=== PATIENT | female | born 1935 | race Caucasian/White ===

== ENCOUNTER 2016-05-05 10:18 | Outpatient (CLI) | payer MEDICARE, BC ==
[2016-05-05 10:54] LABS: Anion Gap 15 mmol/L (10-20); BUN (Urea Nitrogen) 21 mg/dL (9.8-20.1); Calc. Creatinine Clearance 0 mL/min (70-130); Calcium 9.5 mg/dL (7.8-10.44); Carbon Dioxide 19 mmol/L (23-31); Chloride 111 mmol/L (98-107); Estimated GFR-MDRD 26
== END 2016-05-05 10:19 | disposition home or self-care (01) ==
LOC: BURLAB 10:18
PROVIDERS: ATTEND Internal Medicine Nephrology
DX: N18.3 Chronic kidney disease, stage 3 (moderate) (principal); R80.9 Proteinuria, unspecified
CPT/HCPCS: 36415; 80048; 82570; 84156

== ENCOUNTER 2016-05-19 09:40 | Outpatient (CLI) | payer MEDICARE, BC ==
[2016-05-19 11:49] LABS: #Basophils 0.1 thou/uL (0.0-0.2); #Eosinphils 0.2 thou/uL (0.0-0.7); #Lymphocytes 1.2 thou/uL (1.20-3.40); #Monocytes 0.4 thou/uL (0.11-0.59); #Neutrophils 4.4 thou/uL (1.40-6.50); %Basophils 1.5 % (0.0-1.0); %Eosinophils 3.3 % (0.0-10.0); %Monocytes 6.9 % (0.0-10.0); Hematocrit 38.8 % (36.0-47.0); Mean Platelet Volume 5.6 fL (7.4-10.4); Red Blood Cell (RBC) Count 3.85 mill/uL (4.20-5.40); White Blood Cell (WBC) Count 6.2 thou/uL (4.8-10.8)
[2016-05-19 12:19] LABS: Calc. Creatinine Clearance 0 mL/min (70-130); Carbon Dioxide 19 mmol/L (23-31); Chloride 125 mmol/L (98-107); Estimated GFR-MDRD 25; LDL Cholesterol, Calculated 77 mg/dL; Protein, Total 7.1 g/dL (5.8-8.1)
[2016-05-19 12:20] LABS: ALT (SGPT) 14 U/L (0-55); AST (SGOT) 30 U/L (5-34); Alkaline Phosphatase 50 U/L (40-150); Anion Gap 22 mmol/L (10-20); BUN (Urea Nitrogen) 27 mg/dL (9.8-20.1); Bilirubin, Total 0.6 mg/dL (0.2-1.2); Calcium 9.3 mg/dL (7.8-10.44); Globulin 3.2 g/dL (2.4-3.5)
== END 2016-05-19 09:41 | disposition home or self-care (01) ==
LOC: HPCALD 09:40
PROVIDERS: ATTEND Family Medicine
DX: E78.5 Hyperlipidemia, unspecified (principal); E03.9 Hypothyroidism, unspecified
CPT/HCPCS: 36415; 80053; 80061; 84443; 85025

== ENCOUNTER 2016-05-19 13:51 | Emergency (ER) | payer MEDICARE, BC ==
[2016-05-19 15:44] LABS: Anion Gap 15 mmol/L (10-20); BUN (Urea Nitrogen) 26 mg/dL (9.8-20.1); Calc. Creatinine Clearance 0 mL/min (70-130); Calcium 9.5 mg/dL (7.8-10.44); Carbon Dioxide 20 mmol/L (23-31); Chloride 112 mmol/L (98-107); Estimated GFR-MDRD 26
--- NOTE | 2016-05-19 17:05 | ERRECORD ---
[facility] EMERGENCY RECORD PAST MEDICAL HISTORY (14:04 KMOR) MEDICAL HISTORY: Flu vaccine up to date, Tetanus not up to date, Pneumococcal vaccine up to date, Past medical history includes endocrine disease, hypothyroidism, Past medical history includes history of hyperlipidemia. FEMALE SURGICAL HISTORY: Patient's surgical history is not relevant to the management of the case. PSYCHIATRIC HISTORY: No previous psychiatric history. SOCIAL HISTORY: Patient drinks socially, Patient denies drug use, Patient has no smoking history. KNOWN ALLERGIES No Known Allergies (Unconfirmed) No Known Drug Allergies CURRENT MEDICATIONS simvastatin: TABLET : Strength - 20 mg : ORAL Patient Dose: 20 mg Oral once a day (at bedtime). (14:04 KMOR) pilocarpine HCl: TABLET : Strength - 7.5 mg : ORAL Patient Dose: 7.5 mg Oral 3 times a day. (14:05 KMOR) levothyroxine: TABLET : Strength - 75 mcg : ORAL Patient Dose: 75 mcg Oral once a day. (14:05 KMOR) hydroxychloroquine: TABLET : Strength - 200 mg : ORAL Patient Dose: 200 mg Oral 2 times a day. (14:06 KMOR) VITAL SIGNS VITAL SIGNS: Pulse: 82, Resp: 18, Temp: 98.1 (Oral), Pain: 8, O2 sat: 99 on Room Air, Time: 05/19/2016 13:57. (13:57 KMOR) BP: 177/70, Time: 05/19/2016 14:00. (14:00 KMOR) BP: 179/61, Pulse: 72, Resp: 18, O2 sat: 100 on Room Air, Time: 05/19/2016 15:00. (15:00 AHOO) BP: 171/63, Pulse: 75, Resp: 17, O2 sat: 100 on Room Air, Time: 05/19/2016 15:37. (15:37 AHOO) BP: 160/66, Pulse: 76, Resp: 16, Temp: 98.1 (Oral), Pain: 5, O2 sat: 100 on Room Air, Time: 05/19/2016 15:54. (15:54 AHOO) MEDICATION ADMINISTRATION SUMMARY Drug Name: sodium chloride 0.45 % intravenous, Dose Ordered: 500 mL, Route: IV Fluid Infusion, Status: Given, Time: 14:36 05/19/2016, Detailed record available in Medication Service section. PROBLEM LIST No recorded problems &a-1R&a+25V*p+0X*[id number]*c202B*c15G*c2P*p-0X&a-25V&a+1R Name: Greta Miller : 1935 F80 MedRec: [id number] AcctNum: [id number] Prepared: MonMay 19, 2016 16:10 by Interface Page 1 of 2 pMD [facility] EMERGENCY RECORD DIAGNOSIS (15:51 WMEI) FINAL: PRIMARY: Hypernatremia. PRESCRIPTION No recorded prescriptions DISPOSITION PATIENT: Disposition Type: Discharge, Disposition: *Discharge Home. (15:51 WMEI) Patient left the department. (16:07 AHOO) Magana: AHOO=AISHA Petersen, July KMOR=POLA Hickman, Alexandra WMEI=DO Solorzano William &a-1R&a+25V*p+0X*e0178B*c202B*c15G*c2P*p-0X&a-25V&a+1R Name: Greta Miller : 1935 F80 MedRec: [id number] AcctNum: [id number] Prepared: MonMay 19, 2016 16:10 by Interface Page 2 of 2 pMD MTDD
--- NOTE | 2016-05-19 17:07 | PICIS ---
[facility] EMERGENCY RECORD TRIAGE (13:58 KMOR) TRIAGE NOTES: Had routine lab work from pcp this am, called and told to come to ED for abnormal labs. (13:58 KMOR) PATIENT: NAME: Greta Miller, AGE: 80, GENDER: female, : Sat 1935, TIME OF GREET: Yanelis May 19, 2016 13:51, PREFERRED LANGUAGE: Peruvian, ETHNICITY: Not or , ECODE BILLING MAP: [facility], SSN: [id number], Zip Code: [address], KG WEIGHT: 71.67, PHONE: , , , PERSON ID: [id number], PAYMENT: [employer], PCP: MIGUEL. (13:58 KMOR) COMPLAINT: Abnormal labs. (13:58 KMOR) ADMISSION: URGENCY: 4 Non Urgent, ADMISSION SOURCE: Home, TRANSPORT: CAR, BED: ER -04. (13:58 KMOR) ASSESSMENT: Assessment: A&OX4. RR EVEN AND UNLABROED. (14:04 KMOR) PAIN: Patient complains of pain described as, aching, on a scale 0-10 patient rates pain as 8, Location BACK. (14:04 KMOR) IMMUNIZATIONS: Flu vaccine up to date, Tetanus not up to date, Pneumococcal vaccine up to date. (14:04 KMOR) SIRS SCORING: Heart Rate 55-109 (0), Temp range 96.8-101.1 (0), respiratory rate 12-24 (0), Mental Status altered: no (0), Infection or Suspected Infection: No. (14:04 KMOR) TRIAGE SCREENING: Patient denies suicidal ideation, Patient denies presence of domestic violence. (14:04 KMOR) LMP: LMP: Menopause. (14:04 KMOR) PROVIDERS: TRIAGE NURSE: Alexandra Hickman RN. (13:58 KMOR) VITAL SIGNS: Pulse 82, Resp 18, Temp 98.1, (Oral), Pain 8, O2 Sat 99, on Room Air, Time 05/19/2016 13:57. (13:57 KMOR) KNOWN ALLERGIES No Known Allergies (Unconfirmed) No Known Drug Allergies CURRENT MEDICATIONS simvastatin: TABLET : Strength - 20 mg : ORAL Patient Dose: 20 mg Oral once a day (at bedtime). (14:04 KMOR) pilocarpine HCl: TABLET : Strength - 7.5 mg : ORAL Patient Dose: 7.5 mg Oral 3 times a day. (14:05 KMOR) levothyroxine: TABLET : Strength - 75 mcg : ORAL Patient Dose: 75 mcg Oral once a day. (14:05 KMOR) hydroxychloroquine: TABLET : Strength - 200 mg : ORAL Patient Dose: 200 mg Oral 2 times a day. (14:06 KMOR) VITAL SIGNS &a-1R&a+25V*p+0X*m9674F*c202B*c15G*c2P*p-0X&a-25V&a+1R Name: Greta Miller : 1935 F80 MedRec: [id number] AcctNum: [id number] Prepared: [facility] May 19, 2016 16:16 by Interface Page 1 of 5 pMD [facility] EMERGENCY RECORD VITAL SIGNS: Pulse: 82, Resp: 18, Temp: 98.1 (Oral), Pain: 8, O2 sat: 99 on Room Air, Time: 05/19/2016 13:57. (13:57 KMOR) BP: 177/70, Time: 05/19/2016 14:00. (14:00 KMOR) BP: 179/61, Pulse: 72, Resp: 18, O2 sat: 100 on Room Air, Time: 05/19/2016 15:00. (15:00 AHOO) BP: 171/63, Pulse: 75, Resp: 17, O2 sat: 100 on Room Air, Time: 05/19/2016 15:37. (15:37 AHOO) BP: 160/66, Pulse: 76, Resp: 16, Temp: 98.1 (Oral), Pain: 5, O2 sat: 100 on Room Air, Time: 05/19/2016 15:54. (15:54 AHOO) NURSING ASSESSMENT: FOCUSED (14:37 KMOR) CONSTITUTIONAL: Patient arrives ambulatory, Gait steady, History obtained from patient, Patient appears comfortable, Patient cooperative, Patient alert, Oriented to person, place and time, Skin warm, Skin dry, Skin normal in color, Mucous membranes pink, Mucous membranes moist, Patient is well-groomed, Patient complains of Abnomal labs, Patient reports abnormal labs per pcp, Reports today she has routine test and was called to come to ED for abnormal. No nausea, no vomiting, no diarrhea. NA 161. PAIN: aching pain, low back, on a scale 0-10 patient rates pain as 8. EYES: Focused eye assessment finding include pupils equally round and reactive to light, Left pupil 3 mm in size, Right pupil 3 mm in size, no redness, no tearing, no foreign body sensation. NEURO: Focused neuro assessment findings include patient alert, cooperative, No facial droop noted, Speech coherent, no weakness, no numbness, No loss of consciousness. GCS: Eye opening: (4) - Spontaneous, Verbal: (5) - Oriented/conversive, Motor: (6) - Obeys commands/Spontaneous, GCS Total: 15. RESPIRATORY: Focused respiratory assessment findings include breath sounds clear. ABDOMEN: Focused abdominal assessment findings include abdomen soft, no complaint of nausea, no vomiting, Bowel sounds present. GENITOURINARY FEMALE: Focused genitourinary assessment not applicable. MUSCULOSKELETAL: Focused musculoskeletal assessment findings include normal range of motion. LACERATION: Focused laceration assessment not applicable. NOTES: Patient tolerated procedure well. NURSING PROCEDURE: DISCHARGE NOTE (16:00 OO) DISCHARGE: Patient discharged to home, ambulating without assistance, family driving, accompanied by //partner, Summary of Care printed/ provided, Transition record given to patient, Discharge instructions given to patient, Discharge instructions given to PT SPOUSE, Above person(s) verbalized understanding of discharge instructions and follow-up care, Patient treated and evaluated by physician. &a-1R&a+25V*p+0X*d8200T*c202B*c15G*c2P*p-0X&a-25V&a+1R Name: Greta Miller : 1935 F80 MedRec: [id number] AcctNum: [id number] Prepared: Yanelis May 19, 2016 16:16 by Interface Page 2 of 5 D [facility] EMERGENCY RECORD NURSING PROCEDURE: IV PATIENT IDENITIFIER: Patient actively involved in identification process, Patient's identity verified by patient stating name, Patient's identity verified by patient stating date. (14:30 KMOR) Patient actively involved in identification process, Patient's identity verified by patient stating name, Patient's identity verified by patient stating date, Patient's identity verified by hospital ID sania, Patient's identity verified by family member. (15:52 AHOO) IV SITE 1: IV therapy indicated for hydration, IV therapy indicated for medication administration, IV established, to the right antecubital, using a 20 gauge catheter, in one attempt, Saline lock established, Flushed with normal saline (mls): 10cc. (14:30 KMOR) FOLLOW-UP SITE 1: After procedure, 2x3 ensure dressing applied, After procedure, no drainage at IV site, After procedure, no swelling at IV site, After procedure, no redness at IV site. (14:30 KMOR) After procedure, 2x2 dressing applied, After procedure, no drainage at IV site, After procedure, no swelling at IV site, After procedure, no redness at IV site, IV discontinued, due to patient being discharged, catheter intact. (15:52 AHOO) NOTES: Patient tolerated procedure well. (14:30 KMOR) ORDER DETAILS Order Name: Basic Metabolic Panel, Status: Active, Time: 15:20 05/19/2016, User: [facility], - Ordered for: DO Solorzano William, - Entered by: DO Solorzano William - [facility] May 19, 2016 15:20, - Quantity: 1, Order Name: SALINE LOCK, Status: Done, Time: 14:30 05/19/2016, User: JOSE DE JESUS, - Ordered for: DO Solorzano William, - Entered by: DO Solorzano William - [facility] May 19, 2016 14:22, - Quantity: 1. MEDICATION ADMINISTRATION SUMMARY Drug Name: sodium chloride 0.45 % intravenous, Dose Ordered: 500 mL, Route: IV Fluid Infusion, Status: Given, Time: 14:36 05/19/2016, Detailed record available in Medication Service section. MEDICATION SERVICE sodium chloride 0.45 % intravenous: Order: sodium chloride 0.45 % intravenous (sodium chloride 0.45 %) - Dose: 500 mL : IV Fluid Infusion Schedule: Now Ordered by: Jose Solorzano DO Entered by: Jose Solorzano DO [facility] May 19, 2016 14:24 , Acknowledged by: Colleen Petersen LVN [facility] May 19, 2016 14:29 &a-1R&a+25V*p+0X*q9942O*c202B*c15G*c2P*p-0X&a-25V&a+1R Name: Greta Miller : 1935 F80 MedRec: [id number] AcctNum: [id number] Prepared: Yanelis May 19, 2016 16:16 by Interface Page 3 of 5 pMD [facility] EMERGENCY RECORD Documented as given by: Alexandra Hickman RN [facility] May 19, 2016 14:36 Patient, Medication, Dose, Route and Time verified prior to administration. Amount given: 500ml, IV SITE #1 IV fluids established for hydration, IV SITE #1 into right antecubital, IV SITE #1 1st bag hung, amount 1 Liter hung, IV SITE #1 bolus of 500 ml established, via primary tubing, IV SITE #1 on IV pump, Connections checked prior to administration, Line traced prior to administration, Catheter placement confirmed via flush prior to administration, IV site without signs or symptoms of infiltration during medication administration, No swelling during administration, No drainage during administration, IV flushed after administration, Correct patient, time, route, dose and medication confirmed prior to administration, Patient advised of actions and side-effects prior to administration, Allergies confirmed and medications reviewed prior to administration, Patient in position of comfort, Side rails up, Cart in lowest position, Family at bedside. : Follow Up : Response assessment performed, No signs or symptoms of allergic reaction noted, _IV SITE #1:_, IV fluid infusion discontinued, on Yanelis May 19, 2016 15:17, 45 minutes, ., Total amount infused: 500ML, IV Line flushed after administration. (15:17 AHOO) PAST MEDICAL HISTORY (14:04 KMOR) MEDICAL HISTORY: Flu vaccine up to date, Tetanus not up to date, Pneumococcal vaccine up to date, Past medical history includes endocrine disease, hypothyroidism, Past medical history includes history of hyperlipidemia. FEMALE SURGICAL HISTORY: Patient's surgical history is not relevant to the management of the case. PSYCHIATRIC HISTORY: No previous psychiatric history. SOCIAL HISTORY: Patient drinks socially, Patient denies drug use, Patient has no smoking history. EVENTS TRANSFER: Triage to Emergency Emergency Room -04. (MonMay 19, 2016 13:58 KMOR) Removed from Emergency Emergency Room -04. (16:07 AHOO) PROBLEM LIST No recorded problems DIAGNOSIS (15:51 WMEI) FINAL: PRIMARY: Hypernatremia. DISPOSITION PATIENT: Disposition Type: Discharge, Disposition: *Discharge Home. (15:51 WMEI) Patient left the department. (16:07 AHOO) &a-1R&a+25V*p+0X*g9325Y*c202B*c15G*c2P*p-0X&a-25V&a+1R Name: Greta iMller : 1935 F80 MedRec: [id number] AcctNum: [id number] Prepared: MonMay 19, 2016 16:16 by Interface Page 4 of 5 pMD [facility] EMERGENCY RECORD INSTRUCTION (15:52 WMEI) DISCHARGE: SODIUM (BLOOD). SPECIAL: Follow-up with your PCP. PRESCRIPTION No recorded prescriptions IMAGING *DISCHARGE INSTRUCTIONS RECEIPT: Image captured from scanner. (16:03 AHOO) *SUPPLY CHARGE SHEET: Image captured from scanner. (16:04 AHOO) Magana: AHOO=AISHA Petersen, July KMOR=POLA Hickman, Alexandra WMEI=DO Solorzano William &a-1R&a+25V*p+0X*x1229T*c202B*c15G*c2P*p-0X&a-25V&a+1R Name: Paul Greta M : 1935 F80 MedRec: [id number] AcctNum: [id number] Prepared: MonMay 19, 2016 16:16 by Interface Page 5 of 5 pMD MTDD
== END 2016-05-19 16:00 | disposition home or self-care (01) ==
LOC: BURERS 13:51
DX: E87.0 Hyperosmolality and hypernatremia (principal); E03.9 Hypothyroidism, unspecified; E78.5 Hyperlipidemia, unspecified; Z79.899 Other long term (current) drug therapy
CPT/HCPCS: 36415; 80053; 80061; 84443; 85025; 96360

== ENCOUNTER 2016-05-23 10:38 | Outpatient (CLI) | payer MEDICARE, BC ==
[2016-05-23 13:08] LABS: ALT (SGPT) 15 U/L (0-55); AST (SGOT) 24 U/L (5-34); Alkaline Phosphatase 49 U/L (40-150); Anion Gap 15 mmol/L (10-20); BUN (Urea Nitrogen) 27 mg/dL (9.8-20.1); Bilirubin, Total 0.6 mg/dL (0.2-1.2); Calc. Creatinine Clearance 0 mL/min (70-130); Calcium 9.3 mg/dL (7.8-10.44); Carbon Dioxide 20 mmol/L (23-31); Chloride 113 mmol/L (98-107); Estimated GFR-MDRD 26; Globulin 3.1 g/dL (2.4-3.5); Protein, Total 7.3 g/dL (5.8-8.1)
== END 2016-05-23 10:39 | disposition home or self-care (01) ==
LOC: HPCALD 10:38
PROVIDERS: ATTEND Family Medicine
DX: E87.0 Hyperosmolality and hypernatremia (principal)
CPT/HCPCS: 36415; 80053; 83930; 83935

== ENCOUNTER 2016-05-24 15:54 | Outpatient (CLI) | payer MEDICARE, BC ==
[2016-05-24 16:30] LABS: Bilirubin Negative (Negative); Blood, Urine Trace (Negative); Glucose, Urine (Dipstick) Negative (Negative); Ketone, Urine Negative (Negative); Nitrite Negative (Negative); Protein, Urine (Dipstick) Negative (Neg-Trace); Urobilinogen 0.2 mg/dL (0.2-1.0)
[2016-05-24 20:32] LABS: Bacteria/HPF 2+ HPF (None Seen); RBC/HPF None Seen HPF (0-3); Squamous Epithelial 0-3 HPF (0-3); WBC/HPF 21-50 HPF (0-3)
== END 2016-05-24 15:55 | disposition home or self-care (01) ==
LOC: HPCALD 15:54
PROVIDERS: ATTEND Family Medicine
DX: M54.5 Low back pain (principal)
CPT/HCPCS: 81001; 87086

== ENCOUNTER 2016-07-08 10:28 | Outpatient (CLI) | payer MEDICARE, BC ==
[2016-07-08 11:32] LABS: Anion Gap 16 mmol/L (10-20); BUN (Urea Nitrogen) 32 mg/dL (9.8-20.1); BUN/Creatinine Ratio 15.46; Calc. Creatinine Clearance 0 mL/min (70-130); Calcium 9.8 mg/dL (7.8-10.44); Carbon Dioxide 23 mmol/L (23-31); Chloride 107 mmol/L (98-107); Estimated GFR-MDRD 23
[2016-07-08 11:35] LABS: Bilirubin Negative (Negative); Blood, Urine Negative (Negative); Glucose, Urine (Dipstick) Negative (Negative); Ketone, Urine Negative (Negative); Nitrite Negative (Negative); Protein, Urine (Dipstick) Negative (Neg-Trace); Urobilinogen 0.2 mg/dL (0.2-1.0)
[2016-07-08 17:44] LABS: Phosphorus 4.1 mg/dL (2.3-4.7)
== END 2016-07-08 10:29 | disposition home or self-care (01) ==
LOC: BURLAB 10:28
PROVIDERS: ATTEND Internal Medicine
DX: N18.4 Chronic kidney disease, stage 4 (severe) (principal)
CPT/HCPCS: 36415; 80069; 81003; 82306; 82570; 83970; 84156

== ENCOUNTER 2016-09-06 09:55 | Outpatient (CLI) | payer MEDICARE, BC ==
[2016-09-06 11:07] LABS: ALT (SGPT) 14 U/L (8-55); AST (SGOT) 27 U/L (5-34); Albumin 4.2 g/dL (3.4-4.8); Alkaline Phosphatase 50 U/L (40-150); Anion Gap 14 mmol/L (10-20); BUN (Urea Nitrogen) 24 mg/dL (9.8-20.1); Bilirubin, Total 0.8 mg/dL (0.2-1.2); Calc. Creatinine Clearance 0 mL/min (70-130); Calcium 9.8 mg/dL (7.8-10.44); Carbon Dioxide 23 mmol/L (23-31); Chloride 112 mmol/L (98-107); Estimated GFR-MDRD 25; Globulin 3.3 g/dL (2.4-3.5); Glucose 92 mg/dL (83-110); Potassium 4.9 mmol/L (3.5-5.1); Protein, Total 7.5 g/dL (5.8-8.1); Sodium 144 mmol/L (136-145)
[2016-09-06 11:43] LABS: Bilirubin Negative (Negative); Blood, Urine Trace (Negative); Clarity Cloudy (Clear); Glucose, Urine (Dipstick) Negative (Negative); Leukocyte Moderate (Negative); Nitrite Negative (Negative); Protein, Urine (Dipstick) Negative (Neg-Trace); Urobilinogen 0.2 mg/dL (0.2-1.0); pH, Urine 5.5 (5.0-9.0)
[2016-09-06 12:04] LABS: #Basophils 0.1 thou/uL (0.0-0.2); #Eosinphils 0.2 thou/uL (0.0-0.7); #Lymphocytes 1.2 thou/uL (1.20-3.40); #Monocytes 0.6 thou/uL (0.11-0.59); #Neutrophils 4.4 thou/uL (1.40-6.50); %Basophils 1.6 % (0.0-1.0); %Eosinophils 3.1 % (0.0-10.0); %Lymphocytes 17.9 % (21.0-51.0); %Monocytes 8.5 % (0.0-10.0); %Neutrophils 68.9 % (42.0-75.0); Hemoglobin 12.4 g/dL (12.0-16.0); Mean Corpuscular HGB CONC 32.4 g/dL (32.0-36.0); Mean Corpuscular Hemoglobin 32.4 pg (27.0-31.0); Mean Platelet Volume 7.1 fL (7.4-10.4); Platelet Count 200 thou/uL (130-400); RBC Distribution Width 13.1 % (11.5-14.5); Red Blood Cell (RBC) Count 3.82 mill/uL (4.20-5.40); White Blood Cell (WBC) Count 6.4 thou/uL (4.8-10.8)
[2016-09-06 12:29] LABS: Bacteria/HPF 2+ HPF (None Seen); RBC/HPF 0-3 HPF (0-3); Squamous Epithelial 0-3 HPF (0-3); WBC/HPF 21-50 HPF (0-3)
[2016-09-06 18:13] LABS: CRP (Inflammatory) Less than 0.50 mg/dL (= or < 0.5)
[2016-09-06 18:29] LABS: Creatinine, Urine 86.01 mg/dL (47-110); Protein, Urine Random Quant Less than 10 mg/dL
== END 2016-09-06 09:56 | disposition home or self-care (01) ==
LOC: BURLAB 09:55
PROVIDERS: ATTEND Internal Medicine Rheumatology
DX: E55.9 Vitamin D deficiency, unspecified (principal); M81.0 Age-related osteoporosis without current pathological fracture; M35.9 Systemic involvement of connective tissue, unspecified
CPT/HCPCS: 36415; 80053; 81003; 81015; 82570; 83970; 84156; 85025; 85652; 86140; 86160

== ENCOUNTER 2016-09-12 10:09 | Outpatient (CLI) | payer MEDICARE, BC | END 2016-09-12 10:10 | LOC: HPCALD 10:09 | PROVIDERS: ATTEND Family Medicine | DX: N39.0 Urinary tract infection, site not specified (principal) | CPT/HCPCS: 87086 ==

== ENCOUNTER 2016-09-23 15:36 | Outpatient (CLI) | payer MEDICARE, BC ==
--- NOTE | 2016-09-23 17:29 | RAD ---
LUMBAR SPINE THERE VIEWS HISTORY: Back pain. Left-sided buttock pain. FINDINGS: Degenerative changes are present. Minimal levoscoliosis. No compression fracture or bony destructi on is seen. There is minimal retrolisthesis of L2 over L3. IMPRESSION: Lumbar spondylosis. POS: ALBERTO
--- NOTE | 2016-09-23 17:47 | RAD ---
LEFT HIP TWO VIEWS HISTORY: Buttock pain. COMPARISON: None. FINDINGS: No acute fracture or malalignment. The SI joint and pubic symphysis are narrowed. Small osteophyte formation is present at the acetabulum. IMPRESSION: No acute fracture or malalignment of the left hip. POS: ALBERTO
== END 2016-09-23 15:37 | disposition home or self-care (01) ==
LOC: BURRAD 15:36
PROVIDERS: ATTEND Family Medicine
DX: M79.1 Myalgia (principal); M47.816 Spondylosis without myelopathy or radiculopathy, lumbar region
CPT/HCPCS: 72100

== ENCOUNTER 2017-07-05 14:09 | Emergency (ER) | payer MEDICARE, BC ==
[2017-07-05 14:55] LABS: Anion Gap 14 mmol/L (10-20); BUN (Urea Nitrogen) 25 mg/dL (9.8-20.1); Calc. Creatinine Clearance 0 mL/min (70-130); Calcium 10.1 mg/dL (7.8-10.44); Carbon Dioxide 26 mmol/L (23-31); Chloride 107 mmol/L (98-107); Estimated GFR-MDRD 26; Glucose 124 mg/dL (83-110); Potassium 4.1 mmol/L (3.5-5.1); Sodium 143 mmol/L (136-145)
--- NOTE | 2017-07-05 21:40 | ULT ---
LEFT LOWER EXTREMITY VENOUS ULTRASOUND 07/05/17 Color duplex doppler ultrasonography of the left lower extremity was performed. All deep veins were f reely compressibility from groin to ankle. There was no echogenic clot. Normal doppler responses to a ugmentation maneuvers were found. IMPRESSION: No evidence of DVT. POS: HOME
== END 2017-07-05 15:52 | disposition home or self-care (01) ==
LOC: BURERS 14:09
DX: R60.0 Localized edema (principal); I10 Essential (primary) hypertension; E03.9 Hypothyroidism, unspecified; E78.5 Hyperlipidemia, unspecified; Z79.899 Other long term (current) drug therapy
CPT/HCPCS: 80048; 83880

== ENCOUNTER 2017-10-05 20:27 | Emergency (ER) | payer MEDICARE, BC ==
[2017-10-05] MEDS ORDERED: Diazepam 5 MG TAB ONE (21:28)
[2017-10-05] MEDS ORDERED: predniSONE 20 MG TAB ONE (21:29)
[2017-10-05] MEDS ORDERED: Ondansetron ODT 4 MG TAB ONE (21:29)
== END 2017-10-05 21:41 | disposition home or self-care (01) ==
LOC: BURERS 20:27
DX: H81.13 Benign paroxysmal vertigo, bilateral (principal); I10 Essential (primary) hypertension; E03.9 Hypothyroidism, unspecified; E78.5 Hyperlipidemia, unspecified
CPT/HCPCS: 99283; J7506; Q0162

== ENCOUNTER 2018-08-31 10:22 | Outpatient (CLI) | payer MEDICARE, BC ==
--- NOTE | 2018-08-31 17:41 | RAD ---
CHEST TWO VIEWS: 08/31/18 No prior films were available for comparison. The heart is normal in size. The mediastinum appears no rmal and the trachea is midline. A 1.8 cm pleural based density is seen in the right lung apex. Statistically, this is most likely ple ural thickening and scarring from prior disease in this location. If any old films existed, however, they would be useful to be sure of this and rule out this being due to current active pathology. The lungs are generally clear. There is a little increased markings to the right of the heart on the PA film, but this appears to be minor areas of scarring or fibrosis. IMPRESSION: 1. No acute cardiopulmonary findings. 2. 1.8 cm nodular density that is pleural based in the right lung apex. More likely an area of s carring due to old disease than something current, but current pathology cannot be ruled out on this one film alone. If old films exists, they should be obtained for comparison. If not, one could consid er doing an elective CT to get a slightly better look at the area. POS: HOME
[2018-08-31 18:11] LABS: #Eosinphils 0.2 thou/uL (0.0-0.7); #Lymphocytes 1.6 thou/uL (1.20-3.40); #Monocytes 0.6 thou/uL (0.11-0.59); #Neutrophils 4.8 thou/uL (1.40-6.50); %Basophils 0.5 % (0.0-1.0); %Eosinophils 2.7 % (0.0-10.0); %Lymphocytes 22.4 % (21.0-51.0); %Monocytes 7.9 % (0.0-10.0); %Neutrophils 66.5 % (42.0-75.0); Mean Corpuscular HGB CONC 32.9 g/dL (32.0-36.0); Mean Corpuscular Hemoglobin 32.7 pg (27.0-31.0); Mean Corpuscular Volume 99.5 fL (78.0-98.0); Mean Platelet Volume 8.1 fL (7.4-10.4); Platelet Count 236 thou/uL (130-400); RBC Distribution Width 11.9 % (11.5-14.5); Red Blood Cell (RBC) Count 3.96 mill/uL (4.20-5.40); White Blood Cell (WBC) Count 7.2 thou/uL (4.8-10.8)
[2018-08-31 18:20] LABS: ALT (SGPT) 10 U/L (8-55); AST (SGOT) 21 U/L (5-34); Albumin 4.5 g/dL (3.4-4.8); Alkaline Phosphatase 55 U/L (40-150); Anion Gap 14 mmol/L (10-20); BUN (Urea Nitrogen) 30 mg/dL (9.8-20.1); Bilirubin, Total 0.8 mg/dL (0.2-1.2); Calc. Creatinine Clearance 0 mL/min (70-130); Calcium 10.3 mg/dL (7.8-10.44); Carbon Dioxide 25 mmol/L (23-31); Chloride 105 mmol/L (98-107); Estimated GFR-MDRD 26; Globulin 2.8 g/dL (2.4-3.5); Glucose 88 mg/dL (83-110); Potassium 4.9 mmol/L (3.5-5.1); Protein, Total 7.3 g/dL (6.0-8.3); Sodium 139 mmol/L (136-145)
== END 2018-08-31 10:23 | disposition home or self-care (01) ==
LOC: BURRAD 10:22
PROVIDERS: ATTEND Family Medicine
DX: Z01.818 Encounter for other preprocedural examination (principal)
CPT/HCPCS: 36415; 71046; 80053; 85025

== ENCOUNTER 2018-09-07 10:54 | Outpatient (CLI) | payer MEDICARE, BC ==
--- NOTE | 2018-09-07 13:30 | CT ---
CT CHEST WITHOUT CONTRAST: 09/07/2018 HISTORY/TECHNIQUE: A spiral CT of the chest was performed in response to an abnormal chest x-ray. Axial slices were acq uired, followed by coronal and sagittal reconstructions. IV contrast was not employed because the radha radford's renal function was too low. FINDINGS: There is a 4 cm opacity in the apex of the right upper lobe, posteriorly. Portions of it have some a ir bronchograms running through it. There is some minor scarring that is somewhat similar but very m inimal in the left lung apex. The odds are fairly high, therefore, that the finding in the right ape x is residual of prior infection, most likely granulomatous infection given the location. The CT julieta ne cannot speak to whether there is any active disease in the area or not. With some bronchograms in it, the possibility of neoplasm goes down (though it is not zero, with entities such as bronchoalveo lar carcinoma). Elsewhere on scan 28, there is a small, 6 mm, noncalcified nodule in the base of the right upper lobe . Its margins are fairly discrete and not spiculated. The lungs are otherwise clear. Some minor sc arring is seen in the lingular region of the left upper lobe. There are no effusions. No mediastina l masses or signs of adenopathy are found. Coronary artery calcifications are evident. Scans into the upper abdomen show an ovoid, 2.1 cm, hypodense mass in the left adrenal gland. Its CT numbers are strongly negative, indicating that this is almost certainly a benign adenoma and needs n o further followup. IMPRESSION: 1. Parenchymal opacity in the apex of the right upper lobe with air bronchograms running within it. There are some vaguely similar findings but at a much lesser degree in the apex of the left upper lo be. Most likely this represents the residual of prior infection here. I can neither rule in nor rul e out any activity to the area. The possibility of neoplasm is not zero but seems reduced. 2. A 6 mm, noncalcified nodule in the left upper lobe. RECOMMENDATIONS: A follow-up scan in six months to ensure stability of these areas would seem prudent. If the patient has any signs or symptoms of lung infection, one may have to reconsider whether the residual finding s in the right upper lobe may still have some active disease in them or not. CODE T POS: ALBERTO
== END 2018-09-07 10:55 | disposition home or self-care (01) ==
LOC: BURCT 10:54
PROVIDERS: ATTEND Family Medicine
DX: R91.1 Solitary pulmonary nodule (principal)
CPT/HCPCS: 71250

== ENCOUNTER 2019-09-13 15:43 | Emergency (ER) | payer MEDICARE, BC ==
[~2019-09-13 15:43] MED LIST: Iopamidol 370 76% 100 ML VIAL ONE
[2019-09-13 16:19] LABS: PTT 33.7 SEC (22.9-36.1); Prothrombin Time 12.7 sec (12.0-14.7)
[2019-09-13 16:22] LABS: #Basophils 0.1 thou/uL (0.0-0.2); #Eosinphils 0.2 thou/uL (0.0-0.7); #Lymphocytes 1.6 thou/uL (1.20-3.40); #Monocytes 0.7 thou/uL (0.11-0.59); #Neutrophils 7.1 thou/uL (1.40-6.50); %Eosinophils 1.6 % (0.0-10.0); %Lymphocytes 16.9 % (21.0-51.0); %Monocytes 7.2 % (0.0-10.0); %Neutrophils 73.3 % (42.0-75.0); Hemoglobin 12.2 g/dL (12.0-16.0); Mean Corpuscular HGB CONC 32.6 g/dL (32.0-36.0); Mean Corpuscular Hemoglobin 32.3 pg (27.0-31.0); Mean Platelet Volume 6.6 fL (7.4-10.4); Platelet Count 217 thou/uL (130-400); RBC Distribution Width 12.2 % (11.5-14.5); Red Blood Cell (RBC) Count 3.77 mill/uL (4.20-5.40); White Blood Cell (WBC) Count 9.7 thou/uL (4.8-10.8)
[2019-09-13 16:28] LABS: ALT (SGPT) 14 U/L (8-55); AST (SGOT) 28 U/L (5-34); Albumin 4.7 g/dL (3.4-4.8); Alkaline Phosphatase 52 U/L (40-110); Anion Gap 14 mmol/L (10-20); BUN (Urea Nitrogen) 35 mg/dL (9.8-20.1); Bilirubin, Total 0.9 mg/dL (0.2-1.2); Calc. Creatinine Clearance 0 mL/min (70-130); Calcium 10.2 mg/dL (7.8-10.44); Carbon Dioxide 23 mmol/L (23-31); Chloride 102 mmol/L (98-107); Estimated GFR-MDRD 27; Globulin 3.4 g/dL (2.4-3.5); Glucose 112 mg/dL (83-110); Potassium 3.9 mmol/L (3.5-5.1); Protein, Total 8.1 g/dL (6.0-8.3); Sodium 135 mmol/L (136-145)
--- NOTE | 2019-09-13 19:27 | CT ---
CTA AORTOGRAM OF CHEST AND ABDOMEN WITH IV CONTRAST: 09/13/19 CTA of chest and abdomen performed following aortogram protocol with multiplanar reconstructions and 3D postprocessing. INDICATIONS: Chest pain. Assess for aortic dissection. FINDINGS: Thoracic aorta shows atherosclerotic changes primarily involving the descending thoracic aorta. There is peripheral thrombus and peripheral calcification with irregular lumen. Mild ectasia. No dissectio n or aneurysmal dilatation. The abdominal aorta also shows atherosclerotic changes with mild ectasia and peripheral calcification . Low abdominal aorta diameter in the sagittal plane measured at 2.3 cm AP dimension. There is no georgette dence of dissection. Review of the aortic branches shows atherosclerotic calcifications at the origin of the celiac artery and there is severe narrowing of the proximal celiac artery indicating significant stenosis. The superior mesenteric artery shows no significant stenosis at its origin. The main superior mesente marbin artery trunk appears patent. The aortic bifurcation is patent. Atherosclerotic calcifications seen in both iliac arteries; however , no stenosis or aneurysm. The renal arteries are small. Atherosclerotic calcifications seen in both proximal renal arteries and there is evidence of significant bilateral renal artery stenosis by NASCET criteria. Consider furthe r evaluation with catheter angiogram which may be of benefit in this patient with known renal insuffi ciency. The lungs show chronic parenchymal changes. Stranding in both lung bases with mild atelectasis. No in flammatory infiltrate or effusion. Mediastinum shows no evidence of adenopathy. There is bilateral ap ical pleural thickening. The apical pleural thickening is more pronounced in the posterior right lung apex with a more nodular mass-like appearance. Short term follow-up is recommended. Review of the soft tissues of abdomen reveals a 1 cm cyst in the inferior right lobe of the liver. Th e spleen and pancreas appear unremarkable. There is mild prominence of the extrahepatic biliary duct and there is mild prominence of the pancreatic duct of uncertain significance. The patient appears to be post cholecystectomy and this biliary duct dilatation may be on the basis of post cholecystectomy status. Adrenal glands normal. Kidneys unremarkable. Both kidneys show symmetric enhancement and function. Bowel loops unremarkable as visualized. The visualized thoracic and lumbar vertebrae maintain height with moderate to severe degenerative changes. IMPRESSION: 1. No evidence of thoracic or abdominal aortic dissection. 2. Atherosclerotic changes seen involving the thoracic abdominal aorta with ectasia as noted abo ve. 3. Stenosis involving the proximal celiac artery. 4. Evidence of significant stenosis involving both proximal renal arteries. Catheter angiogram m ay be of benefit to assess benefit of renal artery stenting. 5. There is bilateral apical pleural thickening which is more pronounced on the right. The right apical pleural thickening has a mass-like appearance on coronal imaging measuring in the 3.5 cm rang e width. Recommend short term follow-up CT chest to confirm stability with repeat chest CT within six months. POS: KATHARINA
== END 2019-09-13 17:51 | disposition home or self-care (01) ==
LOC: BURERS 15:43
DX: S20.219A Contusion of unspecified front wall of thorax, initial encounter (principal); I10 Essential (primary) hypertension; E03.9 Hypothyroidism, unspecified; E78.5 Hyperlipidemia, unspecified; Z79.899 Other long term (current) drug therapy; V89.2XXA Person injured in unspecified motor-vehicle accident, traffic, initial encounter
CPT/HCPCS: 71275; 72191; 74175; 80053; 84484; 85025; 85610; 85730; 93005; 96360; Q9967

== ENCOUNTER 2020-04-06 09:12 | Outpatient (CLI) | payer MEDICARE, BC ==
--- NOTE | 2020-04-06 17:42 | CT ---
CT CHEST WITHOUT CONTRAST: Date: 04-06-2020 Comparison: CTA aortic dissection study done on 09-13-2019. FINDINGS: On the prior CT there were areas of scarring and confluence in the lung apices, particularly the righ t, that were problematic and thought to be worth following up. I would agree, and I see very little c hange in their appearance today compared to before. Today's scan shows an area of apical scarring and particularly in the right upper lobe apex a more co nfluent area. Its size and shape have not changed over the internal, leading me to think it is most l ikely an area of prior infection that has left behind this appearance. Some scarring in the left lung apex is less, but present. Parts of it are slightly spiculated but really no different than before e jannieer. On scan 25 today there is a tiny 6 mm rounded density in the base of the right upper lobe. It may be associated with a vessel. It was present before and has not changed at all. I doubt its curren t significance. Elsewhere, the lungs are clear except for some lingular streaking that was present pr eviously. There are no effusions or new infiltrates. The mediastinum shows no mass or adenopathy. Cor onary arterial sclerosis was seen in both the right and left coronary systems. Scans into the upper a bdomen showed no acute findings in the areas scanned. IMPRESSION: Overall, there has been very little, if any, change in the appearance of the apical parenchymal findi ngs. They are presumed to represent chronic infection or the sequelae of prior infection. The lack of pattern changer and repairer the period of time is comforting. Minimal neoplastic change in this area would be easily masked by these findings, however. POS: HOME
== END 2020-04-06 09:13 | disposition home or self-care (01) ==
LOC: BURCT 09:12
PROVIDERS: ATTEND Family Medicine
DX: R91.8 Other nonspecific abnormal finding of lung field (principal)
CPT/HCPCS: 71250

== ENCOUNTER 2021-04-30 10:03 | Outpatient (CLI) | payer MEDICARE, BC | END 2021-04-30 10:04 | disposition home or self-care (01) | LOC: BURRAD 10:03 | PROVIDERS: ATTEND Family Medicine | DX: M48.061 Spinal stenosis, lumbar region without neurogenic claudication (principal); M41.9 Scoliosis, unspecified; M51.36 Other intervertebral disc degeneration, lumbar region; M47.816 Spondylosis without myelopathy or radiculopathy, lumbar region | CPT/HCPCS: 72070; 72100 ==